=== PATIENT | female | born 1960 | race Caucasian/White ===

== ENCOUNTER 2019-03-07 00:26 | Emergency (ER) | payer OTHER ==
[~2019-03-07] VITALS: Ht 160 cm; Wt 53.1 kg
[2019-03-07 00:29] VITALS: Ht 160 cm; Wt 53.1 kg
[2019-03-07 05:49] VITALS: BP 113/60
== END 2019-03-07 05:49 | disposition home or self-care (01) ==
LOC: ED 00:26
DX: F32.9 Major depressive disorder, single episode, unspecified (principal); R19.7 Diarrhea, unspecified

== ENCOUNTER 2019-03-15 16:09 | Emergency (ER) | payer SELFPAY ==
[~2019-03-15] VITALS: Ht 162.6 cm; Wt 54.0 kg
[2019-03-15 16:16] VITALS: Ht 162.6 cm; Wt 54.0 kg
[2019-03-15 16:46] LABS: PLATELET COUNT 289 x10^3mcL (130-400); RED CELL DISTRIBUTION WIDTH 14.3 % (11.5-14.5)
[2019-03-15 17:08] LABS: CALCIUM 9.5 mg/dL (8.5-10.1); CARBON DIOXIDE 28.5 mmol/L (21-32); CHLORIDE SERUM 101 mmol/L (98-107); CREATININE SERUM 0.7 mg/dL (0.6-1.0); GFR1 > 60 mL/min; GLUCOSE SERUM 97 mg/dL (74-106); POTASSIUM SERUM 3.8 mmol/L (3.5-5.1); SODIUM SERUM 136 mmol/L (136-145)
[2019-03-15 17:12] LABS: ALBUMIN 3.9 g/dL (3.4-5.0); ALKALINE PHOSPHATASE 63 U/L (46-116); ALT/SGPT 21 U/L (14-59); AST/SGOT 16 U/L (15-37); BILIRUBIN TOTAL 0.2 mg/dL (0.20-1.00); TOTAL PROTEIN, SERUM 7.4 g/dL (6.4-8.2)
[2019-03-15 18:22] VITALS: BP 136/73
== END 2019-03-15 18:22 | disposition home or self-care (01) ==
LOC: ED 16:09
PROVIDERS: Emergency Medicine
DX: R20.2 Paresthesia of skin (principal); F17.210 Nicotine dependence, cigarettes, uncomplicated; Z90.710 Acquired absence of both cervix and uterus; Z98.890 Other specified postprocedural states
CPT/HCPCS: 36415